=== PATIENT | female | born 1960 | race Caucasian/White ===

== ENCOUNTER → 2018-05-24 | Outpatient (CLI) | payer OTHER ==
--- NOTE | 2018-05-25 11:09 | MM ---
Reason for exam: screening (asymptomatic). Last mammogram was performed 1 year and 7 months ago. History: Patient is postmenopausal. Cancelled Right US Needle Biopsy of the right breast, June 12, 2008. Cyst aspiration of the right breast, 2002. Took hormonal contraceptives for 11 years beginning at age 22. Physical Findings: A clinical breast exam by your physician is recommended on an annual basis and results should be correlated with mammographic findings. MG 3D Screening Mammo W/Cad Bilateral CC and MLO view(s) were taken. Prior study comparison: October 17, 2016, right breast MG 3d work up w/cad RT. October 06, 2016, bilateral MG 3d screening mammo w/cad. The breast tissue is heterogeneously dense. This may lower the sensitivity of mammography. There is no discrete abnormality. ASSESSMENT: Negative, BI-RAD 1 RECOMMENDATION: Routine screening mammogram of both breasts in 1 year.
== END | disposition home or self-care (01) ==
LOC: RADMAMWWP 12:06
PROVIDERS: ATTEND Obstetrics & Gynecology
DX: Z12.31 Encounter for screening mammogram for malignant neoplasm of breast (principal)
CPT/HCPCS: 77063; 77067

== ENCOUNTER → 2019-02-11 | Outpatient (CLI) | payer OTHER ==
--- NOTE | 2019-02-12 07:13 | US ---
EXAMINATION TYPE: US thyroid st tissue head/neck DATE OF EXAM: 02/11/2019 COMPARISON: NONE CLINICAL HISTORY: E04.1 Thyroid Nodule. Right thyroid nodule GLAND SIZE: Right Lobe: 5.3 x 2.0 x 2.4 cm Overall Parenchyma: heterogenous Left Lobe: 4.7 x 1.7 x 2.3 cm Overall Parenchyma: heterogeneous Isthmus Thickness: 0.4 cm NODULES RIGHT: # of nodules measured on right: 2 1. 0.7 X 0.4 x 0.6 cm mixed nodule at the mid pole with well-defined margins; . This nodule is wid er than tall and shows intranodular vascularity. Prior size: no prior 2. 1.1 X 0.9 x 1.1 cm mixed nodule at the lower pole with well-defined margins; . This nodule is wi alka than tall and shows intranodular vascularity. Prior size: no prior LEFT: # of nodules measured on left: 2 1. 0.9 X 0.4 x 0.8 cm mixed nodule at the medial pole with poorly defined margins; . This nodule i s wider than tall and shows intranodular vascularity. Prior size: no prior 2. 0.6 X 0.4 x 0.5 cm mixed nodule at the mid pole with well-defined margins; . This nodule is wide r than tall and shows no intranodular vascularity. Prior size: no prior ISTHMUS: # of nodules measured in the isthmus: 1 1. 2.0 X 1.0 x 1.5 cm mixed nodule at the right pole with well-defined margins; . This nodule is w ider than tall and shows intranodular vascularity. Prior size: no prior Bilateral neck scanned, no evidence of lymphadenopathy. Multiple thyroid nodules noted, Largest 2 belia sured bilaterally. IMPRESSION: 1. Nonspecific thyroid nodularity. Consider biopsy of nodules greater than 1 cm.
== END | disposition home or self-care (01) ==
LOC: RADUSWWP 16:26
PROVIDERS: ATTEND Surgery
DX: E04.1 Nontoxic single thyroid nodule (principal)
CPT/HCPCS: 76536

== ENCOUNTER → 2019-03-26 | Outpatient (CLI) | payer OTHER ==
--- NOTE | 2019-03-26 15:38 | US ---
EXAMINATION TYPE: US transvaginal DATE OF EXAM: 03/26/2019 COMPARISON: NONE CLINICAL HISTORY: pelvic pain R10.2. Possible fibroid visualized on screening colonoscopy. 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 Date of LMP: 04/17 EXAM MEASUREMENTS: Uterus: 6.9 x 3.5 x 4.8 cm Endometrial Stripe: 0.4 cm Right Ovary: unable to visualize Left Ovary: unable to visualize 1. Uterus: Anteverted, heterogeneous with multiple hypoechoic lesions one within the anterior body t hat is well-circumscribed measuring 0.6 x 0.5 x 0.6 cm and another within the posterior myometrium th at may be submucosal measuring up to 1.3 cm. Heterogeneity of the posterior uterine fundus is also se en with additional possible ill-defined leiomyoma. 2. Endometrium: appears wnl 3. Right Ovary: Obscured by overlying bowel gas 4. Left Ovary: Obscured by overlying bowel gas 5. Bilateral Adnexa: prominent vascularity noted bilateral adnexa 6. Posterior cul-de-sac: wnl IMPRESSION: 1. Engorged pelvic vascularity that may relate to pelvic congestion syndrome, left greater than right . 2. Heterogenous uterus with multiple probable leiomyomas most of which appear intramural and one of w hich could be submucosal. 3. Ovaries are obscured by bowel gas.
== END | disposition home or self-care (01) ==
LOC: RADUSWWP 14:20
PROVIDERS: ATTEND Obstetrics & Gynecology
DX: N94.89 Other specified conditions associated with female genital organs and menstrual cycle (principal); R10.2 Pelvic and perineal pain
CPT/HCPCS: 76830

== ENCOUNTER → 2019-10-09 | Outpatient (CLI) | payer OTHER ==
--- NOTE | 2019-10-10 11:56 | MM ---
Reason for exam: screening (asymptomatic). Last mammogram was performed 1 year and 5 months ago. History: Patient is postmenopausal. Cancelled Right US Needle Biopsy of the right breast, June 12, 2008. Cyst aspiration of the right breast, 2002. Took hormonal contraceptives for 11 years beginning at age 22. Physical Findings: A clinical breast exam by your physician is recommended on an annual basis and results should be correlated with mammographic findings. MG 3D Screening Mammo W/Cad Bilateral CC and MLO view(s) were taken. Prior study comparison: May 24, 2018, bilateral MG 3d screening mammo w/cad. October 17, 2016, right breast MG 3d work up w/cad RT. The breast tissue is heterogeneously dense. This may lower the sensitivity of mammography. There is a new 4mm oval low density central inner left breast mass 3cm from nipple. No suspicious abnormality on the right breast. ASSESSMENT: Incomplete: need additional imaging evaluation, BI-RAD 0 RECOMMENDATION: Ultrasound of the left breast. [facility] will attempt to contact patient to return for ultrasound.
== END | disposition home or self-care (01) ==
LOC: RADMAMWWP 08:26
PROVIDERS: ATTEND Obstetrics & Gynecology
DX: Z12.31 Encounter for screening mammogram for malignant neoplasm of breast (principal)
CPT/HCPCS: 77063; 77067

== ENCOUNTER → 2019-10-10 | Outpatient (CLI) | payer OTHER ==
--- NOTE | 2019-10-11 09:57 | BD ---
EXAMINATION TYPE: Axial Bone Density DATE OF EXAM: 10/10/2019 COMPARISON: 10.06.2016 CLINICAL HISTORY: 59 YR OLD FEMALE.....ICD-10 CODE: M89.9 DISORDER OF BONE Height: 64.6 Weight: 169 FRAX RISK QUESTIONS: Family History (Parent hip fracture): YES RISK FACTORS HISTORY OF: Family History of Osteoporosis: YES, HER MOTHER, WITH BROKEN HIP Postmenopausal woman: YES, AT 52 YRS OLD Hyperparathyroidism: NO Adrenal Insufficiency: NO MEDICATIONS: Additional Medications: BP MEDS, CBD OIL, DIABETIC MEDS, VIT D Additional History: HYPERTENSION, DIABETIC EXAM MEASUREMENTS: Bone mineral densitometry was performed using the [employer] System. Bone mineral density as measured about the Lumbar spine is: ----- L1-L4(G/cm2): 1.158 T Score Values are as follows: ----- L1: -0.5 ----- L2: -0.7 ----- L3: -0.3 ----- L4: 0.5 ----- L1-L4: -0.2 Bone mineral density has: Increased 8.2% since study of: 10.06.2016 Bone mineral density about the R hip (g/cm2): 0.985 Bone mineral density about the L hip (g/cm2): 1.025 T Score values are as follows: -----R Neck: 0.9 -----L Neck: 1.0 -----R Total: -0.2 -----L Total: 0.1 Bone mineral density has: Increased 2.7% since study of: 10.06.2016 FRAX%s: THERE IS A 10.2% CHANCE FOR A MAJOR OSTEOPOROTIC FX AND A 0.0% FOR HIP......PROBABILITY FOR FX IN 10 YRS TIME IMPRESSION: Normal (Values between +1 and -1 indicate normal bone mass). Consider repeating this study in 5 year s or sooner if there is some new clinical indication. NOTE: T-SCORE=SD OF THE YOUNG ADULT MEAN.
== END | disposition home or self-care (01) ==
LOC: RADBDWWP 15:03
PROVIDERS: ATTEND Obstetrics & Gynecology
DX: M89.9 Disorder of bone, unspecified (principal)
CPT/HCPCS: 77080

== ENCOUNTER → 2019-10-24 | Outpatient (CLI) | payer OTHER ==
--- NOTE | 2019-10-24 15:46 | US ---
EXAMINATION TYPE: US thyroid st tissue head/neck DATE OF EXAM: 10/24/2019 COMPARISON: US 02/11/2019 CLINICAL HISTORY: E04.1 Thyroid Nodule. Follow up thyroid nodules, history of thyroid FNA GLAND SIZE: Right Lobe: 5.3 x 2.0 x 2.8 cm Overall Parenchyma: heterogenous Left Lobe: 4.7 x 1.7 x 2.0 cm Overall Parenchyma: heterogeneous Isthmus Thickness: 0.6 cm NODULES RIGHT: # of nodules measured on right: 2 1. 0.8 X 0.5 x 0.8 cm hypoechoic mixed nodule at the mid pole with well-defined margins. This nodul e is wider than tall and shows intranodular vascularity. Prior size: 0.7 x 0.4 x 0.6 cm 2. 0.7 X 0.5 x 0.5 cm hypoechoic mixed nodule at the lower pole with well-defined margins. This nodu le is wider than tall and shows intranodular vascularity. Prior size: 1.1 x 0.9 x 1.1 cm LEFT: # of nodules measured on left: 2 1. 0.8 X 0.5 x 0.8 cm hypoechoic solid nodule at the medial upper pole with poorly defined margins. This nodule is wider than tall and shows intranodular vascularity. Prior size: 0.9 x 0.4 x 0.8 cm 2. 0.6 X 0.4 x 0.6 cm hypoechoic mixed nodule at the mid pole with well-defined margins. This nodule is wider than tall and shows intranodular vascularity. Prior size: 0.6 x 0.4 x 0.5 cm ISTHMUS: # of nodules measured in the isthmus: 1 1. 2.2 X 1.0 x 1.9 cm hypoechoic mixed nodule at the right side with well-defined margins. This nod ule is wider than tall and shows intranodular vascularity. Prior size: 2.0 x 1.0 x 1.5 cm Bilateral neck scanned, no evidence of lymphadenopathy. Heterogeneous gland with enlarged right lobe, multiple bilateral nodules with largest described above . IMPRESSION: Multinodular goiter. No interval enlargement of the nodules within the right thyroid lobe nor the left thyroid lobe. Very minimal interval enlargement of the isthmus thyroid nodule.
== END | disposition home or self-care (01) ==
LOC: RADUSWWP 14:51
PROVIDERS: ATTEND Surgery
DX: E04.2 Nontoxic multinodular goiter (principal)
CPT/HCPCS: 76536

== ENCOUNTER → 2019-10-25 | Outpatient (CLI) | payer OTHER ==
--- NOTE | 2019-10-28 08:46 | USB ---
Reason for exam: additional evaluation requested from abnormal screening. History: Patient is postmenopausal. Cancelled Right US Needle Biopsy of the right breast, June 12, 2008. Cyst aspiration of the right breast, 2002. Took hormonal contraceptives for 11 years beginning at age 22. Physical Findings: Nurse did not find any significant physical abnormalities on exam. US Breast Workup Limited LT Left limited breast ultrasound including focal area of concern, retroareolar and axilla demonstrates a 0.7 x 0.7 x 0.3cm oval dermoid cyst at 9 o'clock scar, a 0.4 x 0.4 x 0.5cm oval, taller than wide, cystic lesion at 10 o'clock, a 0.2 x 0.2 x 0.2cm oval, cystic lesion at 10 o'clock, duct ectasia at the posterior nipple and a 2.0 x 2.4 x 0.9cm lymph node at the axilla. These results were verbally communicated with the patient and result sheet given to the patient on 10/25/19. ASSESSMENT: Probably benign, BI-RAD 3 RECOMMENDATION: Follow-up diagnostic mammogram and ultrasound of the left breast in 6 months.
== END | disposition home or self-care (01) ==
LOC: RADMAMWWP 15:16
PROVIDERS: ATTEND Obstetrics & Gynecology
DX: R92.8 Other abnormal and inconclusive findings on diagnostic imaging of breast (principal)

== ENCOUNTER → 2020-12-10 | Outpatient (CLI) | payer OTHER ==
--- NOTE | 2020-12-10 07:55 | US ---
EXAMINATION TYPE: US abdomen limited DATE OF EXAM: 12/10/2020 COMPARISON: NONE CLINICAL HISTORY: E807 Elevated bilirubin,R10.9 pain. EXAM MEASUREMENTS: Liver Length: 15.3 cm Gallbladder Wall: 0.2 cm CBD: 0.4 cm Right Kidney: 12.2 X 4.2 X 3.3 cm Pancreas: Duct visualized measuring 0.3 cm . This is minimally prominent Liver: wnl Gallbladder: Two non-mobile echogenic areas visualized, largest measuring 0.5. Gallstone and polyp b e within the differential. Evidence for sonographic Soto's sign: No CBD: wnl Right Kidney: No hydronephrosis or masses seen IMPRESSION: 1. Minimal prominence of the pancreatic duct. CT abdomen and pancreas protocol is recommended for add itional evaluation. 2. Gallbladder polyps or adherent stones.
== END | disposition home or self-care (01) ==
LOC: RADUSWWP 07:04
PROVIDERS: ATTEND Family Medicine
DX: K86.89 Other specified diseases of pancreas (principal)
CPT/HCPCS: 76705

== ENCOUNTER → 2020-12-30 | Outpatient (CLI) | payer OTHER ==
--- NOTE | 2020-12-30 09:23 | US ---
EXAMINATION TYPE: US transvaginal DATE OF EXAM: 12/30/2020 COMPARISON: 03/26/2019 CLINICAL HISTORY: 60-year-old female R10.2 Pelvic Pain. LEFT pelvic pain that comes and goes, feels l jean marie a cramp. TECHNIQUE: Transvaginal (TV). Date of LMP: THAI MASSEUR, FINDINGS: EXAM MEASUREMENTS: Uterus: 7.1 x 4.5 x 3.4 cm Endometrial Stripe: 0.2 cm Right Ovary: 2.7 x 1.9 x 1.6 cm Left Ovary: 2.7 x 2.1 x 1.7 cm 1. Uterus: Anteverted with heterogenous myometrium. Two hypoechoic lesions visualized in left myom etrium measuring 7 x 7 x 6 mm and 7 x 6 x 6 mm. 2. Endometrium: wnl 3. Right Ovary: hypoechoic lesion with echogenic rim = 0.7 x 0.6 x 0.7 cm, possible small peripheral ly calcified cyst 4. Left Ovary: Nonspecific echogenic nonvascular area measuring 0.6 x 0.5 x 0.4 cm. This can be reas sessed at follow-up. 5. Bilateral Adnexa: wnl 6. Posterior cul-de-sac: no free fluid IMPRESSION: 1. A couple of intramural fibroids within left-sided the uterus measuring 7 mm each. 2. Endometrial stripe appears normal at 2 mm. 3. Couple nonspecific echogenic areas, one in each ovary measuring up to 7 mm. Possible small cysts. Six-month follow-up ultrasound recommended to reassess.
== END | disposition home or self-care (01) ==
LOC: RADUSWWP 07:38
PROVIDERS: ATTEND Obstetrics & Gynecology
DX: D25.1 Intramural leiomyoma of uterus (principal); R10.2 Pelvic and perineal pain
CPT/HCPCS: 76830

== ENCOUNTER → 2020-12-30 | Outpatient (CLI) | payer OTHER ==
[2020-12-30 08:53] LABS: African American GFR (CKD) >90 (>60 ml/min/1.73 sqM); Blood Urea Nitrogen 13 mg/dL (7-17); Non-African American GFR(CKD) >90 (>60 ml/min/1.73 sqM)
--- NOTE | 2020-12-30 09:39 | CT ---
EXAMINATION TYPE: CT abdomen wo/w con DATE OF EXAM: 12/30/2020 COMPARISON: Ultrasound 12/10/2020 HISTORY: Abnormal ultrasound CT DLP: 1146 mGycm Automated exposure control for dose reduction was used. TECHNIQUE: Helical acquisition of images was performed from the lung bases through the top of iliac crest to include entire abdomen. CONTRAST: Patient injected with 100 mL of Isovue 300. FINDINGS: LUNG BASES: No significant abnormality is appreciated. LIVER/GB: Tiny hypodensity involving the dome of the liver too small to characterize PANCREAS: No significant abnormality is seen. SPLEEN: No significant abnormality is seen. ADRENALS: Nonspecific thickening of the bilateral adrenal glands KIDNEYS: No significant abnormality is seen. BOWEL: No significant abnormality is seen. LYMPH NODES: No significant abnormality is seen. OSSEOUS STRUCTURES: Hypertrophic and degenerative change of the spine. OTHER: Small fat-containing periumbilical hernia IMPRESSION: 1. No pancreatic abnormality identified. 2. Nonspecific adrenal gland thickening could represent small adenoma or mild adrenal hyperplasia.
== END | disposition home or self-care (01) ==
LOC: RADCTMAIN 08:17
PROVIDERS: ATTEND Family Medicine
DX: E27.8 Other specified disorders of adrenal gland (principal); E80.7 Disorder of bilirubin metabolism, unspecified; K82.4 Cholesterolosis of gallbladder; Q45.3 Other congenital malformations of pancreas and pancreatic duct
CPT/HCPCS: 82565; 84520; 74170; 36415; Q9967

== ENCOUNTER → 2021-01-15 | Outpatient (CLI) | payer OTHER ==
--- NOTE | 2021-01-18 11:22 | MM ---
Reason for exam: screening (asymptomatic). Last mammogram was performed 1 year and 3 months ago. History: Patient is postmenopausal. Cancelled Right US Needle Biopsy of the right breast, June 12, 2008. Cyst aspiration of the right breast, 2002. Took hormonal contraceptives for 11 years beginning at age 22. Physical Findings: A clinical breast exam by your physician is recommended on an annual basis and results should be correlated with mammographic findings. MG 3D Screening Mammo W/Cad Bilateral CC and MLO view(s) were taken. Prior study comparison: October 09, 2019, bilateral MG 3d screening mammo w/cad. May 24, 2018, bilateral MG 3d screening mammo w/cad. October 06, 2016, bilateral MG 3d screening mammo w/cad. The breast tissue is heterogeneously dense. This may lower the sensitivity of mammography. New 1.1cm nodule anterior 12-1 o'clock right breast. ASSESSMENT: Incomplete: need additional imaging evaluation, BI-RAD 0 RECOMMENDATION: Special view mammogram and ultrasound of the right breast. [facility] will attempt to contact patient to return for supplemental views and ultrasound.
== END | disposition home or self-care (01) ==
LOC: RADMAMWWP 07:58
PROVIDERS: ATTEND Family Medicine
DX: Z12.31 Encounter for screening mammogram for malignant neoplasm of breast (principal)
CPT/HCPCS: 77063; 77067

== ENCOUNTER → 2021-01-27 | Outpatient (CLI) | payer OTHER ==
--- NOTE | 2021-01-27 10:39 | MM ---
Reason for exam: additional evaluation requested from abnormal screening. Last mammogram was performed less than 1 month ago. History: Patient is postmenopausal. Cancelled Right US Needle Biopsy of the right breast, June 12, 2008. Cyst aspiration of the right breast, 2002. Took hormonal contraceptives for 11 years beginning at age 22. Physical Findings: Nurse did not find any significant physical abnormalities on exam. MG 3D Work Up W/Cad RT Spot compression CC and LM view(s) were taken of the right breast. Prior study comparison: January 15, 2021, bilateral MG 3d screening mammo w/cad. October 09, 2019, bilateral MG 3d screening mammo w/cad. The breast tissue is heterogeneously dense. This may lower the sensitivity of mammography. There is no discrete abnormality including area of concern anterior right breast. No significant new findings when compared with previous films. These results were verbally communicated with the patient and result sheet given to the patient on 01/27/21. ASSESSMENT: Benign, BI-RAD 2 RECOMMENDATION: Follow-up diagnostic mammogram and ultrasound of the right breast in 6 months.
--- NOTE | 2021-01-27 10:40 | USB ---
Reason for exam: additional evaluation requested from abnormal screening. History: Patient is postmenopausal. Cancelled Right US Needle Biopsy of the right breast, June 12, 2008. Cyst aspiration of the right breast, 2002. Took hormonal contraceptives for 11 years beginning at age 22. US Breast Workup Limited RT Technologist: Cristiane Huber Right limited breast ultrasound including focal area of concern, retroareolar and axilla demonstrates a 1.0 x 0.9 x 0.6cm cystic cluster at 11 o'clock and a 0.8 x 0.8 x 0.5cm lesion at 12 o'clock. These results were verbally communicated with the patient and result sheet given to the patient on 01/27/21. ASSESSMENT: Probably benign, BI-RAD 3 RECOMMENDATION: Follow-up diagnostic mammogram and ultrasound of the right breast in 6 months.
== END | disposition home or self-care (01) ==
LOC: RADMAMWWP 08:26
PROVIDERS: ATTEND Family Medicine
DX: R92.8 Other abnormal and inconclusive findings on diagnostic imaging of breast (principal)
CPT/HCPCS: 77061; 77065

== ENCOUNTER → 2021-06-10 | Outpatient (CLI) | payer OTHER ==
--- NOTE | 2021-06-10 15:22 | US ---
EXAMINATION TYPE: US kidneys/renal and bladder DATE OF EXAM: 06/10/2021 COMPARISON: CT abdomen December 30, 2020 CLINICAL HISTORY: R10.32 Left Flank Pain,N22 Urolithiasis,N13.8. Left flank pain, frequent UTI's, hem aturia EXAM MEASUREMENTS: Right Kidney: 12.4 x 5.6 x 6.0 cm Left Kidney: 12.6 x 4.6 x 5.2 cm Right Kidney: No hydronephrosis or masses seen Left Kidney: Hydronephrosis Bladder: wnl Bilateral Jets seen: right jet seen, left jet not seen No nephrolithiasis is seen bilaterally. No masses are identified on images saved. The urinary bladd er is satisfactorily distended. Bilateral ureteral jets are not seen. Mild fullness right renal pelv is. Moderate to severe left sided pyelocaliectasis. IMPRESSION: Moderate to severe left-sided hydronephrosis. Consider obstructing left ureter calculus. Follow-up advised.
== END | disposition home or self-care (01) ==
LOC: RADUSWWP 14:46
PROVIDERS: ATTEND Family Medicine
DX: N13.6 Pyonephrosis (principal); Z87.440 Personal history of urinary (tract) infections
CPT/HCPCS: 76770

== ENCOUNTER → 2021-06-17 | Outpatient (CLI) | payer OTHER ==
--- NOTE | 2021-06-17 13:24 | CT ---
EXAMINATION TYPE: CT abdomen pelvis wo con DATE OF EXAM: 06/17/2021 COMPARISON: 12/30/2020 HISTORY: Left sided flank pain, hydronephrosis CT DLP: 818 mGycm Automated exposure control for dose reduction was used. TECHNIQUE: Helical acquisition of images was performed from the lung bases through the pelvis. FINDINGS: LUNG BASES: No significant abnormality is appreciated. LIVER/GB: Tiny hypodensity involving the dome of the liver too small to characterize. PANCREAS: No significant abnormality is seen. SPLEEN: No significant abnormality is seen. ADRENALS: Stable thickening of the left adrenal gland correlate for adrenal hyperplasia. KIDNEYS: No significant abnormality is seen. ADENOPATHY: None visualized. OSSEOUS STRUCTURES: Atrophic and degenerative change of the spine. Or facet arthropathy L4-5 with gr lamont 1 anterolisthesis. BOWEL: No significant abnormality is seen. OTHER: Small fat-containing periumbilical hernia. Aorta of normal caliber with atherosclerotic change s. Lateral low-lying position which can be associated with a cystocele. IMPRESSION: 1. No hydronephrosis or nephrolithiasis. 2. correlate for cystocele.
[2021-06-17 13:55] LABS: Basophils % (A) 0 %; Eosinophils # (A) 0.1 k/uL (0-0.7); Eosinophils % (A) 2 %; HCT 43.2 % (34.0-46.0); HGB 14.4 gm/dL (11.4-16.0); Lymphocytes # (A) 2.1 k/uL (1.0-4.8); Lymphocytes % (A) 30 %; MCH 29.4 pg (25.0-35.0); MCHC 33.4 g/dL (31.0-37.0); MCV 88.1 fL (80.0-100.0); Mean Platelet Volume 7.3; Monocytes # (A) 0.5 k/uL (0-1.0); Monocytes % (A) 7 %; Neutrophils # (A) 4.2 k/uL (1.3-7.7); Neutrophils % (A) 59 %; Platelet Count 272 k/uL (150-450); RBC 4.91 m/uL (3.80-5.40); RDW 13.6 % (11.5-15.5); WBC 7.1 k/uL (3.8-10.6)
[2021-06-17 14:10] LABS: African American GFR (CKD) >90 (>60 ml/min/1.73 sqM); Anion Gap 10 mmol/L; Blood Urea Nitrogen 15 mg/dL (7-17); Calcium 9.8 mg/dL (8.4-10.2); Carbon Dioxide 27 mmol/L (22-30); Chloride 102 mmol/L (98-107); Glucose 106 mg/dL (74-99); Non-African American GFR(CKD) >90 (>60 ml/min/1.73 sqM); Potassium 4.4 mmol/L (3.5-5.1); Sodium 139 mmol/L (137-145)
== END | disposition home or self-care (01) ==
LOC: RADCTMAIN 12:37
PROVIDERS: ATTEND Family Medicine
DX: K42.9 Umbilical hernia without obstruction or gangrene (principal)
CPT/HCPCS: 74176; 80048; 84443; 85025

== ENCOUNTER → 2021-06-18 | Outpatient (CLI) | payer OTHER | END | disposition home or self-care (01) | LOC: LABWHC1 08:50 | PROVIDERS: ATTEND Family Medicine | DX: L65.9 Nonscarring hair loss, unspecified (principal); D64.9 Anemia, unspecified; E07.9 Disorder of thyroid, unspecified; N28.9 Disorder of kidney and ureter, unspecified; E87.8 Other disorders of electrolyte and fluid balance, not elsewhere classified | CPT/HCPCS: 36415; 82533 ==

== ENCOUNTER → 2022-10-19 | Outpatient (CLI) | payer BC ==
--- NOTE | 2022-11-07 14:59 | MM ---
Reason for Exam: Additional evaluation requested from prior study. Last mammogram was performed 1 year(s) and 9 month(s) ago. Patient History: Menarche at age 16. First Full-Term at age 24. Postmenopausal. Hormonal Contraceptives for 11 years from age 22 until age 33. 2002, Cyst Aspiration on the Right side. 06/12/2008, Cancelled Right US Needle Biopsy on the right side. Risk Values: Juanita 5 year model risk: 1.2%. NCI Lifetime model risk: 6.0%. Prior Study Comparison: 10/09/2019 Bilateral Screening Mammogram, [facility]. 01/15/2021 Bilateral Screening Mammogram, [facility]. 01/27/2021 Right Diagnostic Mammogram, [facility]. Tissue Density: The breast tissue is heterogeneously dense. This may lower the sensitivity of mammography. Findings: Heart appears symmetrical and stable. No suspicious density in the subareolar right breast is evident. A stable rounded densities in the upper right breast anteriorly. No significant interval changes are evident. Overall Assessment: Benign, BI-RAD 2 Management: Screening Mammogram of both breasts in 1 year. A clinical breast exam by your physician is recommended on an annual basis and results should be correlated with mammographic findings. This exam should not preclude additional follow-up of suspicious palpable abnormalities. Results were given to the patient verbally at the time of exam. Electronically signed and approved by: Man Archuleta D.O. Radiologis
== END | disposition home or self-care (01) ==
LOC: RADMAMWWP 13:00
PROVIDERS: ATTEND Obstetrics & Gynecology
DX: R92.8 Other abnormal and inconclusive findings on diagnostic imaging of breast (principal); Z78.0 Asymptomatic menopausal state
CPT/HCPCS: 77062; 77066

== ENCOUNTER → 2024-11-01 | Outpatient (CLI) | payer BC ==
--- NOTE | 2024-11-01 12:52 | BD ---
EXAMINATION TYPE: Axial Bone Density DATE OF EXAM: 11/01/2024 CLINICAL HISTORY: 64 years old Female. ICD-10 CODE: R74.8 ELEVATED ALKALINE PHOSPHATASE LEVEL , Enrrique tional History: Height: 5 ft 4 in Weight: 167 FRAX RISK QUESTIONS: Alcohol (3 or more units per day): no Family History (Parent hip fracture): yes Glucocorticoids (More than 3mos): no (Ex: prednisone, prednisolone, methylprednisolone, dexamethasone, and hydrocortisone). History of Fracture in Adulthood: no Secondary Osteoporosis: 1. Type 1 Diabetes: no 2. Hyperthyroidism: no 3. Menopause before 45: no 4. Malnutrition: no 5. Chronic liver disease: no Rheumatoid Arthritis: no Current Tobacco Use: no RISK FACTORS HISTORY OF: Surgery to Spine/Hip(right/left)/Wrist (right/left): no MEDICATIONS: Thyroid Medications: none Osteoporosis Medications: none EXAM MEASUREMENTS: Bone mineral densitometry was performed using the [employer] System. Bone mineral density as measured about the Lumbar spine is: ----- L1-L4(G/cm2): 1.068 T Score Values are as follows: ----- L1: -1.1 ----- L2: -1.7 ----- L3: -1.1 ----- L4: -0.2 ----- L1-L4: -0.9 Z Score Values are as follows: ----- L1: -0.1 ----- L2: -0.7 ----- L3: -0.1 ----- L4: 0.8 ----- L1-L4: 0.1 Bone mineral density has: decreased -7.8 % since study of: 2019 Bone mineral density about the R hip (g/cm2): 1.066 Bone mineral density about the L hip (g/cm2): 1.050 T Score values are as follows: -----R Neck: 0.2 -----L Neck: 0.1 -----R Total: -0.2 -----L Total: -0.4 Z Score values are as follows: -----R Neck: 1.3 -----L Neck: 1.2 -----R Total: 0.5 -----L Total: 0.4 Bone mineral density has: decreased -3.8 % since study of: 2019 FRAX%s: The graph provided illustrates a 12.7% chance for a major osteoporotic fx and a 0.1 % chance for the hips probability for fx in 10 years time. IMPRESSION: Normal (Values between +1 and -1 indicate normal bone mass). Consider repeating this study in 5 year s or sooner if there is some new clinical indication. NOTE: T-SCORE=SD OF THE YOUNG ADULT MEAN. [facility], , 11/01/2024 12:49 PM
== END | disposition home or self-care (01) ==
LOC: RADBDWWP 08:35
PROVIDERS: ATTEND Family Medicine
DX: R74.8 Abnormal levels of other serum enzymes (principal)
CPT/HCPCS: 77080